=== PATIENT | female | born 1950 | race Caucasian/White ===

== ENCOUNTER → 2018-04-23 | Outpatient (CLI) | payer MEDICARE, OTHER ==
[~2018-04-23] MED LIST: ESOM20; ESTR.75; LANS15EC; LEVLIO2; LEVSOD100; OMEP20ER PO
== END | disposition home or self-care (01) ==
LOC: LAB 09:37 → LAB FUT 04-19 09:25
DX: K21.9 Gastro-esophageal reflux disease without esophagitis (principal)
CPT/HCPCS: 87338

== ENCOUNTER → 2018-05-08 | Outpatient (CLI) | payer MEDICARE, OTHER | END | disposition home or self-care (01) | LOC: LAB SHORT 13:30 → LAB EV 13:30 | DX: N39.0 Urinary tract infection, site not specified (principal) | CPT/HCPCS: 87086; 87147 ==

== ENCOUNTER → 2018-05-20 | Outpatient (CLI) | payer MEDICARE, OTHER | LOC: LAB SHORT 13:55 → LAB EV 13:55 | DX: N30.00 Acute cystitis without hematuria (principal) | CPT/HCPCS: 87086 ==

== ENCOUNTER 2018-12-27 10:34 | Day surgery (SDC) | payer MEDICARE, OTHER ==
[~2018-12-27] VITALS: Ht 165.1 cm; Wt 105.2 kg
[~2018-12-27 10:34] MED LIST changes: +GREEN TEA PO; +HM CALCIUM-MAG1 EACH PO; +LANS30EC PO; +MONT10T PO; +SYNTHROID0.2 MG PO; +Synthroid175 MCG PO; +TUMERSAID TABL1 EACH PO; +Vitamin D2000 UNIT PO; +ZYRTEC10 M1 PO
[2018-12-27] MEDS ORDERED: FISH OIL + D31 EACH (11:55)
== END 2018-12-27 13:29 | disposition home or self-care (01) ==
LOC: ORSCSDS 10:34
PROVIDERS: Ophthalmology
PROC: 08RJ3JZ Replacement of Right Lens with Synthetic Substitute, Percutaneous Approach (ICD-10-PCS; principal; 2018-12-27 12:30)
DX: H25.11 Age-related nuclear cataract, right eye (principal); H21.81 Floppy iris syndrome; J45.909 Unspecified asthma, uncomplicated; E03.9 Hypothyroidism, unspecified; Z79.899 Other long term (current) drug therapy; E66.9 Obesity, unspecified; Z68.38 Body mass index [BMI] 38.0-38.9, adult
CPT/HCPCS: J2001; J2250; J3010; J7120; V2632

== ENCOUNTER 2019-02-21 13:09 | Day surgery (SDC) | payer MEDICARE, OTHER ==
[~2019-02-21] VITALS: Ht 165.1 cm; Wt 231.8 kg
[~2019-02-21 13:09] MED LIST changes: +FISH OIL + D31 EACH
--- NOTE | 2019-02-21 13:43 | NUR ---
02/21/19 1343 Brabara Rivera IV ATTEMPT LH- INFILTRATED IV ATTEMPT LH- INFILTRATED
== END 2019-02-21 14:39 | disposition home or self-care (01) ==
LOC: ORSCSDS 13:09
PROVIDERS: Ophthalmology
PROC: 08RK3JZ Replacement of Left Lens with Synthetic Substitute, Percutaneous Approach (ICD-10-PCS; principal; 2019-02-21 14:30)
DX: H25.12 Age-related nuclear cataract, left eye (principal); H21.81 Floppy iris syndrome; E03.9 Hypothyroidism, unspecified; J45.909 Unspecified asthma, uncomplicated; Z79.899 Other long term (current) drug therapy
CPT/HCPCS: J2001; J2250; J3010; V2632

== ENCOUNTER → 2019-03-07 | Outpatient (CLI) | payer MEDICARE, OTHER | END | disposition home or self-care (01) | LOC: LAB EV 09:51 → LAB SHORT 09:51 | DX: N39.0 Urinary tract infection, site not specified (principal) | CPT/HCPCS: 87077; 87086; 87186 ==

== ENCOUNTER → 2019-04-16 | Outpatient (CLI) | payer MEDICARE, OTHER | END | disposition home or self-care (01) | LOC: LAB EV 07:10 | DX: R11.0 Nausea (principal) | CPT/HCPCS: 87338 ==

== ENCOUNTER 2019-06-12 13:39 | Day surgery (SDC) | payer MEDICARE, OTHER ==
[~2019-06-12] VITALS: Ht 165.1 cm; Wt 105.7 kg
--- NOTE | 2019-06-12 16:08 | NUR ---
06/12/19 1608 Paulina Keith LATE ENTRY: DR ROSE WAS CALLED INTO ASSIST PT WAS DESATURATING TO 88% DESPITE CHIN LIFT AND INCREASE O2 TO [address] ROSE ARRIVED SEDATION WAS PREFORMED ORDERED BY DR ROSE. SEE SEATION WORK SHEET.
== END 2019-06-12 16:31 | disposition home or self-care (01) ==
LOC: ORSCSDS 13:39
PROVIDERS: Internal Medicine Gastroenterology
PROC: 0DB58ZX Excision of Esophagus, Via Natural or Artificial Opening Endoscopic, Diagnostic (ICD-10-PCS; principal; 2019-06-12 15:00)
PROC: 0D758ZZ Dilation of Esophagus, Via Natural or Artificial Opening Endoscopic (ICD-10-PCS; principal; 2019-06-12 15:00)
DX: R13.14 Dysphagia, pharyngoesophageal phase (principal); K21.0 Gastro-esophageal reflux disease with esophagitis; J45.909 Unspecified asthma, uncomplicated; G47.33 Obstructive sleep apnea (adult) (pediatric); E03.9 Hypothyroidism, unspecified; E66.9 Obesity, unspecified; Z68.38 Body mass index [BMI] 38.0-38.9, adult; Z79.899 Other long term (current) drug therapy
CPT/HCPCS: 88305; 88312; J2704; J7120

== ENCOUNTER → 2019-08-08 | Outpatient (CLI) | payer MEDICARE, OTHER | END | disposition home or self-care (01) | LOC: LAB EV 11:27 → LAB SHORT 11:27 | DX: N39.0 Urinary tract infection, site not specified (principal) | CPT/HCPCS: 87077; 87086; 87186 ==

== ENCOUNTER → 2019-09-17 | Outpatient (CLI) | payer MEDICARE, OTHER ==
[2019-09-19 14:06] LABS: HPV 16 Negative (Negative); HPV 18 Negative (Negative); HPV OTHER HR TYPES Negative (Negative)
== END | disposition home or self-care (01) ==
LOC: LAB SHORT 15:54 → LAB 15:54
PROVIDERS: Obstetrics & Gynecology Gynecology
DX: Z91.89 Other specified personal risk factors, not elsewhere classified (principal)
CPT/HCPCS: 87624; G0123

== ENCOUNTER → 2020-10-10 | Outpatient (CLI) | payer MEDICARE, OTHER ==
[~2020-10-10] MED LIST changes: +FISH OIL 1,2001 EAC7 PO; +GUAI600T33 PO; +LEVOTHYROXINE175 MC1 PO; +LEVOTHYROXINE200 MCG PO; +THERA-D2000 UNIT PO
== END | disposition home or self-care (01) ==
LOC: PLD 16:03
DX: N39.0 Urinary tract infection, site not specified (principal)
CPT/HCPCS: 87077; 87086; 87186

== ENCOUNTER 2021-01-11 09:14 | Day surgery (SDC) | payer MEDICARE, OTHER ==
[~2021-01-11] VITALS: Ht 165.1 cm; Wt 103.5 kg
--- NOTE | 2021-01-11 10:21 | NUR ---
01/11/21 1021 AREN CORDOBA AFTER REVIEW OF THE CHART, THIS RN CONSULTED WITH [facility] COACH, KEE. DUE TO REPEATED ANESTHESIA INVOLVEMENT IN PAST CASES ANESTHESIA WAS CONSULTED AND PT SEDATION CLASS WAS CHANGED TO MAC WITH DR. ROSE PROVIDING ANESTHESIA SERVICES.
== END 2021-01-11 11:28 | disposition home or self-care (01) ==
LOC: ORSCSDS 09:14
PROVIDERS: Internal Medicine Gastroenterology
PROC: 0DJD8ZZ Inspection of Lower Intestinal Tract, Via Natural or Artificial Opening Endoscopic (ICD-10-PCS; principal; 2021-01-11 10:30)
DX: Z12.11 Encounter for screening for malignant neoplasm of colon (principal); Z86.010 Personal history of colon polyps; K57.30 Diverticulosis of large intestine without perforation or abscess without bleeding; J45.909 Unspecified asthma, uncomplicated; E03.9 Hypothyroidism, unspecified; G47.33 Obstructive sleep apnea (adult) (pediatric); K21.9 Gastro-esophageal reflux disease without esophagitis; E66.01 Morbid (severe) obesity due to excess calories; E66.9 Obesity, unspecified; Z68.38 Body mass index [BMI] 38.0-38.9, adult; Z68.41 Body mass index [BMI] 40.0-44.9, adult; Z79.899 Other long term (current) drug therapy
CPT/HCPCS: J2250; J2704; J7120

== ENCOUNTER 2021-11-17 08:33 | Day surgery (SDC) | payer MEDICARE, OTHER ==
[~2021-11-17] VITALS: Ht 165.1 cm; Wt 110.0 kg
--- NOTE | 2021-11-17 09:15 | NUR ---
Ambulatory in Day Surgery. History, Chart, Medications and Allergies reviewed before start of procedure. Lungs clear T/O to Auscultation. Patient confirms NPO status and agrees with scheduled surgery. Pre-Op teaching done. Pt verbalizes understanding.
--- NOTE | 2021-11-17 16:17 | NUR ---
SHIFT SUMMARY: POD 0 RIGHT TOTAL KNEE PATIENT IS ALERT AND ORIENTED X4. VS ARE WNL AND IS ON RA. PATIENT DENIES PAIN AT THIS TIME BUT WILL BE MEDICATED PRN INDICATED IN EMAR. PATIENTS RIGHT KNEE HAS GAUZE AND GERA WRAP THAT IS C/D/I. DENIES NUMBNESS OR TINGLING. PATIENT IS ABLE TO MOVE FINGERS AND TOES. PATIENT IS CURRENTLY WORKING WITH PT AT THE MOMENT. CALL LIGHT WITHIN REACH. THE PLAN IS TO CONTINUE TO HAVE PAIN CONTROL AND TO WORK WITH PT AGAIN IN THE MORNING. POSSIBLE DISCHARGE HOME TOMORROW IF APPROPRIATE.
[2021-11-18 05:23] LABS: BASOPHILS ABSOLUTE AUTO 0.01 K/mm3 (0.00-0.23); BASOPHILS PERCENT AUTO 0 % (0-2); EOSINOPHILS PERCENT AUTO 0 % (0-6); Hematocrit 36.7 % (33.0-51.0); Hemoglobin 11.8 g/dL (11.5-16.0); IMMATURE GRAN ABSOLUTE AUTO 0.06 K/mm3 (0.00-0.10); IMMATURE GRAN PERCENT AUTO 0 % (0-1); LYMPHOCYTES ABSOLUTE AUTO 1.22 K/mm3 (0.84-5.20); LYMPHOCYTES PERCENT AUTO 8 % (21-46); MONOCYTES ABSOLUTE AUTO 1.18 K/mm3 (0.16-1.47); MONOCYTES PERCENT AUTO 8 % (4-13); Mean Corpuscular HGB 28.6 pg (26.0-34.0); Mean Corpuscular HGB Conc 32.2 g/dL (31.5-36.5); Mean Corpuscular Volume 89 fL (80-100); Mean Platelet Volume 10.2 fL (9.1-12.4); NEUTROPHILS ABSOLUTE AUTO 12.99 K/mm3 (1.96-9.15); NEUTROPHILS PERCENT AUTO 84 % (41-73); Platelet Count 314 K/mm3 (150-400); RDW Coefficient Variation 13.8 % (11.7-14.2); RDW Standard Deviation 45.2 fL (35.1-46.3); Red Blood Cell Count 4.13 M/mm3 (3.80-5.20); White Blood Cell Count 15.46 K/mm3 (4.00-11.30)
[2021-11-18 05:25] LABS: Anion Gap 6 mmol/L (6-16); Blood Urea Nitrogen 15 mg/dL (8-24); Bun/Creatinine Ratio 16.5 (12.0-20.0); CO2, Blood 26 mmol/L (21-32); Calcium, Blood 8.4 mg/dL (8.5-10.1); Chloride, Blood 106 mmol/L (98-108); Creatinine, Blood 0.91 mg/dL (0.40-1.00); Glomerular Filtration Rate >60 (60-); Glucose, Blood 135 mg/dL (70-99); Potassium, Blood 4.6 mmol/L (3.5-5.5); Sodium, Blood 138 mmol/L (136-145)
--- NOTE | 2021-11-18 06:13 | NUR ---
ALERT AND ORIENTED X'S 4. SLEPT WELL THROUGH NIGHT. PAIN CONTROLLED WITH SCHEDULED TYLENOL AND TORADOL. AMBULATES WITH WALKER WITH CONTACT GUARD. TOLERATED FLUIDS. VOIDS WITHOUT DIFFICULTY. DRESSING TO RIGHT KNEE, CLEAN DRY AND INTACT. SAFETY MAINTAINED, CALL SIMON IN REACH.
[2021-11-18] MEDS ORDERED: Aspir 8181 MG PO (08:47)
[2021-11-18] MEDS ORDERED: SULTRIDS PO (08:47)
[2021-11-18] MEDS ORDERED: ENOX40I SC ×2 (08:48→09:07)
[2021-11-18] MEDS ORDERED: OXAYDO5 M1 PO (09:07)
[2021-11-18] MEDS ORDERED: PROM25 PO (09:07)
--- NOTE | 2021-11-18 10:16 | NUR ---
Patient is in the DC process. She tells me about the success of the surgery and how she hopes for a smooth recovery. Patient then talks about her spiritual journey, her family unit complications and the of her previous . I provide therapeutic listening, grief support and prayer. Patient responds well and shows signs of of beinf comforted.
--- NOTE | 2021-11-18 10:35 | NUR ---
1015 DISCHARGED TO HOME PT DARLING PO FOOD AND FLUIDS WITHOUT NAUSEA. AMBULATING IN ROOM AND HALLWAY WITH WALKER, GAIT BELT AND STANDBY ASSIST. PT DEMONSTRATED CORRECT ADMINISTRATION OF LOVENOX. PT REPORTS PAIIN IS WELL CONTROLLED
--- NOTE | 2021-11-18 10:41 | NUR ---
0830 1/4 INCH CIRCULAR SKIN TEAR TO TOP OF RIGHT HAND WHICH OCCURED WHEN END OF GAIT BELT HIT BACK OF PATIENTS HAND. NO BLEEDING TO SITE. BAND AID APPLIED
--- NOTE | 2021-11-18 14:04 | NUR ---
11/18/21 1404 Melody Dent VERIFICATIONS: EDIT CHART.
== END 2021-11-18 10:18 | disposition home or self-care (01) ==
LOC: ORSCMMR 08:33 → ORD 10:45 → ORSCMMR 10:45 → SURS 14:07 → ORSCMMR 14:07 → SURS 11-18 10:18 → ORSCMMR 11-18 10:18
PROVIDERS: Orthopaedic Surgery
PROC: 0SRC0J9 Replacement of Right Knee Joint with Synthetic Substitute, Cemented, Open Approach (ICD-10-PCS; principal; 2021-11-17 10:45)
PROC: 8E0YXBZ Computer Assisted Procedure of Lower Extremity (ICD-10-PCS; principal; 2021-11-17 10:45)
DX: M17.11 Unilateral primary osteoarthritis, right knee (principal); J45.909 Unspecified asthma, uncomplicated; K21.9 Gastro-esophageal reflux disease without esophagitis; E03.9 Hypothyroidism, unspecified; E66.01 Morbid (severe) obesity due to excess calories; Z68.41 Body mass index [BMI] 40.0-44.9, adult; Z79.899 Other long term (current) drug therapy
CPT/HCPCS: 36415; 73560-RT; 80048; 83735; 85025; 97110; 97116; 97162; A9270; C1713; C1776; J0171; J0690; J0735; J1100; J1650; J1885; J2370; J2405; J2704; J2765; J2795; J3010; J7120

== ENCOUNTER → 2022-01-26 | Outpatient (CLI) | payer MEDICARE, OTHER ==
[~2022-01-26] MED LIST changes: +Aspir 8181 MG PO; +ENOX40I SC; +OXAYDO5 M1 PO; +PROM25 PO; +SULTRIDS PO
== END | disposition home or self-care (01) ==
LOC: LAB SHORT 13:56
DX: N39.0 Urinary tract infection, site not specified (principal)
CPT/HCPCS: 87086

== ENCOUNTER 2022-02-11 08:50 | Day surgery (SDC) | payer MEDICARE, OTHER ==
[~2022-02-11] VITALS: Ht 165.1 cm; Wt 109.3 kg
--- NOTE | 2022-02-11 10:23 | NUR ---
02/11/22 1023 AREN CORDOBA pt updated that we weill be starting later due to Dr. ALCANTARA'S prior procedure running longer. she is understanding and has a call light within reach. warm blankets provided. all questions asked and answered
== END 2022-02-11 11:34 | disposition home or self-care (01) ==
LOC: ORSCSDS 08:50
PROVIDERS: Internal Medicine Gastroenterology
PROC: 0DJ08ZZ Inspection of Upper Intestinal Tract, Via Natural or Artificial Opening Endoscopic (ICD-10-PCS; principal; 2022-02-11 10:15)
DX: R19.4 Change in bowel habit (principal); K21.9 Gastro-esophageal reflux disease without esophagitis; J45.909 Unspecified asthma, uncomplicated; K44.9 Diaphragmatic hernia without obstruction or gangrene; E66.01 Morbid (severe) obesity due to excess calories; Z68.41 Body mass index [BMI] 40.0-44.9, adult; Z79.82 Long term (current) use of aspirin; Z79.899 Other long term (current) drug therapy
CPT/HCPCS: A9270; J0461; J2405; J2704

== ENCOUNTER → 2022-02-11 | Outpatient (CLI) | payer MEDICARE, OTHER ==
[2022-02-11 10:27] LABS: Stool Occult Bld Immuno 1 Negative (NEGATIVE); Stool Occult Bld Immuno 2 Negative (NEGATIVE)
== END | disposition home or self-care (01) ==
LOC: LAB SHORT 07:30 → LAB 07:30
PROVIDERS: Internal Medicine Gastroenterology
DX: R19.8 Other specified symptoms and signs involving the digestive system and abdomen (principal)
CPT/HCPCS: 82274

== ENCOUNTER → 2022-10-25 | Outpatient (CLI) | payer MEDICARE, OTHER | END | disposition home or self-care (01) | LOC: LAB SHORT 09:38 | DX: N39.0 Urinary tract infection, site not specified (principal) | CPT/HCPCS: 87077; 87086; 87186 ==

== ENCOUNTER 2023-02-15 06:04 | Day surgery (SDC) | payer MEDICARE, OTHER ==
[2023-02-15] VITALS (18 sets, daily range): BP systolic 118–149; BP diastolic 48–78
[~2023-02-15] VITALS: Ht 165.1 cm; Wt 112.0 kg
--- NOTE | 2023-02-15 06:30 | NUR ---
Ambulatory in Day Surgery History, Chart, Medications and Allergies reviewed before start of procedure.Lungs clear T/O to Auscultation. Patient confirms NPO status and agrees with scheduled surgery. Patient reports completing Chlorhexadine shower X2 prior to admission to hospital.Surgical site prepped with 2% Chlorhexidine cloth wipe.Pt reports that she has already had her pain meds filled for discharge.
--- NOTE | 2023-02-15 08:12 | NUR ---
02/15/23 0812 Marlee Jacobo 1GM OF VANCOMYCIN GIVEN IN PREOP PRIOR TO COMING TO THE OR.
--- NOTE | 2023-02-15 11:37 | NUR ---
PATIENT ARRIVED FROM PACU TODAY AT 1130. POD 0 LEFT TKA PATIENT IS A&OX4. PATIENT IS ON 4L NC WITH >90% OXYGEN SATS BUT OTHERWISE VS ARE WNL. PATIENT DENIES PAIN AT THIS TIME. HER LEFT KNEE HAS AN GERA WRAP WITH POLAR PACK IN PLACE THAT IS C/D/I. DENIES NUMBNESS OR TINGLING IN ALL EXTREMITIES. CAN MOVE ALL FINGERS AND TOES WHEN ASKED. SHE IS TOLERATING SMALL AMOUNTS OF PO INTAKE. SHE IS LAYING IN BED WITH CALL LIGHT IN REACH. HER SPOUSE SANDRO WAS CALLED AND NOTIFIED THAT THE PATIENT IS IN HER ROOM.
--- NOTE | 2023-02-15 15:47 | NUR ---
SHIFT SUMMARY: POD 0 LEFT TKA PATIENT IS A&OX4. VS ARE WNL AND IS ON RA. PATIENT HAS REPORTED SLIGHT "DISCOMFORT" BUT HAS BEEN GIVEN HER PO SCHEDULED TYLENOL SO FAR THIS SHIFT. HER LEFT KNEE HAS GERA WRAP THAT IS C/D/I. DENIES NUMBNESS OR TINGLING. CAN MOVE ALL FINGERS AND TOES. POLAR PACK IS IN PLACE. SHE HAS AMBULATED THE HALLWAYS AND WORKED WITH PT ONCE TODAY. SHE IS TOLERATING PO INTAKE AND IS VOIDING. PATIENT IS A SBA WITH FWW AND GAIT BELT. SHE CALLS APPROPRIATELY. SHE IS SITTING IN THE RECLINER WITH HER LEGS ELEVATED. CALL LIGHT WITHIN REACH.
--- NOTE | 2023-02-16 03:21 | NUR ---
PT AWAKE WITH IV ALARMING.PT REPORTING SHE WAS NOT ASLEEP,BUT WAS RESTING EYES. VSS.DENIES NEED AT THIS TIME.
[2023-02-16 03:22] VITALS: BP 121/55
[2023-02-16 03:51] LABS: BASOPHILS ABSOLUTE AUTO 0.03 K/mm3 (0.00-0.23); BASOPHILS PERCENT AUTO 0 % (0-2); EOSINOPHILS ABSOLUTE AUTO 0.01 K/mm3 (0.00-0.68); EOSINOPHILS PERCENT AUTO 0 % (0-6); Hematocrit 37.6 % (33.0-51.0); IMMATURE GRAN ABSOLUTE AUTO 0.05 K/mm3 (0.00-0.10); IMMATURE GRAN PERCENT AUTO 0 % (0-1); LYMPHOCYTES ABSOLUTE AUTO 1.45 K/mm3 (0.84-5.20); LYMPHOCYTES PERCENT AUTO 10 % (21-46); MONOCYTES ABSOLUTE AUTO 1.12 K/mm3 (0.16-1.47); MONOCYTES PERCENT AUTO 8 % (4-13); Mean Corpuscular HGB Conc 31.9 g/dL (31.5-36.5); Mean Corpuscular Volume 88 fL (80-100); Mean Platelet Volume 9.4 fL (9.1-12.4); NEUTROPHILS ABSOLUTE AUTO 11.64 K/mm3 (1.96-9.15); NEUTROPHILS PERCENT AUTO 82 % (41-73); Platelet Count 282 K/mm3 (150-400); RDW Coefficient Variation 14.3 % (11.7-14.2); RDW Standard Deviation 46.1 fL (35.1-46.3); Red Blood Cell Count 4.28 M/mm3 (3.80-5.20)
[2023-02-16 05:49] LABS: Calcium, Blood 8.2 mg/dL (8.5-10.1); Creatinine, Blood 0.94 mg/dL (0.40-1.00); Potassium, Blood 3.8 mmol/L (3.5-5.5)
--- NOTE | 2023-02-16 07:33 | NUR ---
DR MARTIN IN TO SEE PT.
--- NOTE | 2023-02-16 07:41 | NUR ---
SUMMARY PT AMBULATORY WITH SBA.TOLERATING PO AND VOIDING.DR KELLY HERE.PT IS PLANNING FOR DISCHARGE.
[2023-02-16 07:56] VITALS: BP 116/51
[2023-02-16] MEDS ORDERED: OXYC5 PO (08:34)
[2023-02-16] MEDS ORDERED: PROM25 PO (08:37)
[2023-02-16] MEDS ORDERED: XARELTO10 M1 PO (08:39)
[2023-02-16] MEDS ORDERED: SULTRIDS PO (08:39)
--- NOTE | 2023-02-16 10:07 | NUR ---
discharged DC'D IV, CATHETER INTACT. PT CLEARED THERAPY. REVIEWED DC INSTRUCTIONS W/PT; VERBALIZED UNDERSTANDING. PT LEFT UNIT IN WC W/POSSESSIONS AND DC PAPERWORK AND POLAR PACK IN HAND TO RIDE WAITING OUTSIDE.
== END 2023-02-16 10:04 | disposition home or self-care (01) ==
LOC: ORSCMMR 06:04 → ORD 07:30 → ORSCMMR 07:30 → SURS 10:57 → ORSCMMR 02-16 10:04
PROVIDERS: Orthopaedic Surgery
PROC: 0SRD0J9 Replacement of Left Knee Joint with Synthetic Substitute, Cemented, Open Approach (ICD-10-PCS; principal; 2023-02-15 07:30)
DX: M17.12 Unilateral primary osteoarthritis, left knee (principal); Z96.651 Presence of right artificial knee joint; E66.01 Morbid (severe) obesity due to excess calories; Z68.41 Body mass index [BMI] 40.0-44.9, adult; J45.909 Unspecified asthma, uncomplicated; E03.9 Hypothyroidism, unspecified; K21.9 Gastro-esophageal reflux disease without esophagitis; Z79.899 Other long term (current) drug therapy
CPT/HCPCS: 36415; 73560-LT; 80048; 83735; 85025; 97110; 97116; 97162; A9270; C1713; C1776; J0171; J0690; J0735; J1100; J1885; J2250; J2370; J2405; J2704; J2765; J2795; J3010; J3370; J7120

== ENCOUNTER 2024-07-14 16:39 | Emergency (ER) | payer MEDICARE, OTHER ==
[~2024-07-14] VITALS: Ht 167.6 cm; Wt 99.8 kg
[~2024-07-14 16:39] MED LIST changes: +OXYC5 PO; +XARELTO10 M1 PO
[2024-07-14 17:41] LABS: BASOPHILS ABSOLUTE AUTO 0.06 K/mm3 (0.00-0.23); BASOPHILS PERCENT AUTO 1 % (0-2); EOSINOPHILS ABSOLUTE AUTO 0.19 K/mm3 (0.00-0.68); EOSINOPHILS PERCENT AUTO 2 % (0-6); Hematocrit 43.9 % (33.0-51.0); Hemoglobin 14.1 g/dL (11.5-16.0); IMMATURE GRAN ABSOLUTE AUTO 0.02 K/mm3 (0.00-0.10); IMMATURE GRAN PERCENT AUTO 0 % (0-1); LYMPHOCYTES ABSOLUTE AUTO 2.39 K/mm3 (0.84-5.20); LYMPHOCYTES PERCENT AUTO 27 % (21-46); MONOCYTES PERCENT AUTO 8 % (4-13); Mean Corpuscular HGB 27.7 pg (26.0-34.0); Mean Corpuscular HGB Conc 32.1 g/dL (31.5-36.5); Mean Corpuscular Volume 86 fL (80-100); Mean Platelet Volume 9.4 fL (9.1-12.4); NEUTROPHILS ABSOLUTE AUTO 5.67 K/mm3 (1.96-9.15); NEUTROPHILS PERCENT AUTO 63 % (41-73); Platelet Count 333 K/mm3 (150-400); RDW Coefficient Variation 14.2 % (11.7-14.2); RDW Standard Deviation 45.2 fL (35.1-46.3); Red Blood Cell Count 5.09 M/mm3 (3.80-5.20); White Blood Cell Count 9.03 K/mm3 (4.00-11.30)
[2024-07-14 17:52] LABS: Albumin, Blood 3.1 g/dL (3.4-5.0); Albumin/Globulin Ratio 0.8 (0.8-1.8); Bilirubin, Total 0.2 mg/dL (0.1-1.0); Bun/Creatinine Ratio 11.7 (12.0-20.0); Calcium, Blood 8.4 mg/dL (8.5-10.1); Creatinine, Blood 0.94 mg/dL (0.40-1.00); Globulin, Blood 4.1 g/dL (2.2-4.0); Potassium, Blood 4.1 mmol/L (3.5-5.5); Total Protein, Blood 7.2 g/dL (6.4-8.2)
[2024-07-14 19:30] VITALS: BP 145/71
== END 2024-07-14 20:09 | disposition home or self-care (01) ==
LOC: ER 16:39
PROVIDERS: Student in an Organized Health Care Education/Training Program
DX: K44.9 Diaphragmatic hernia without obstruction or gangrene (principal); J45.909 Unspecified asthma, uncomplicated; K21.9 Gastro-esophageal reflux disease without esophagitis; Z79.899 Other long term (current) drug therapy
CPT/HCPCS: 71045; 80053; 83690; 84484; 85025; 93005; 93010; 99285-25

== ENCOUNTER → 2024-08-07 | Outpatient (CLI) | payer MEDICARE, OTHER | END | disposition home or self-care (01) | LOC: LAB SHORT 10:30 → LAB 10:30 | DX: N39.0 Urinary tract infection, site not specified (principal) | CPT/HCPCS: 87077; 87086; 87186 ==

== ENCOUNTER 2025-08-19 14:00 | Emergency (ER) | payer MEDICARE, OTHER ==
[~2025-08-19] VITALS: Ht 165.1 cm; Wt 107.5 kg
[2025-08-19] MEDS ORDERED: Ondansetron HCl 2 MG / ML 2ML Vial IV ONE (14:35)
[2025-08-19] MEDS ORDERED: Morphine Sulfate 4 MG/1 ML Injection IV ONE (14:35)
[2025-08-19 15:04] LABS: BASOPHILS ABSOLUTE AUTO 0.04 K/mm3 (0.00-0.23); BASOPHILS PERCENT AUTO 0 % (0-2); EOSINOPHILS ABSOLUTE AUTO 0.23 K/mm3 (0.00-0.68); EOSINOPHILS PERCENT AUTO 2 % (0-6); Hematocrit 38.8 % (33.0-51.0); Hemoglobin 12.5 g/dL (11.5-16.0); IMMATURE GRAN ABSOLUTE AUTO 0.05 K/mm3 (0.00-0.10); IMMATURE GRAN PERCENT AUTO 1 % (0-1); LYMPHOCYTES ABSOLUTE AUTO 1.70 K/mm3 (0.84-5.20); LYMPHOCYTES PERCENT AUTO 18 % (21-46); MONOCYTES ABSOLUTE AUTO 0.76 K/mm3 (0.16-1.47); MONOCYTES PERCENT AUTO 8 % (4-13); Mean Corpuscular HGB Conc 32.2 g/dL (31.5-36.5); Mean Corpuscular Volume 89 fL (80-100); NEUTROPHILS ABSOLUTE AUTO 6.82 K/mm3 (1.96-9.15); NEUTROPHILS PERCENT AUTO 71 % (41-73); NRBC ABSOLUTE 0.00 K/mm3 (0.00-0.02); NRBC Auto 0.0 /100 WBC (0.0-0.2); RDW Coefficient Variation 14.5 % (11.7-14.2); RDW Standard Deviation 46.5 fL (35.1-46.3)
[2025-08-19 15:21] LABS: Alanine Aminotransfer (ALT/SGP 21.0 U/L (12-78); Albumin, Blood 3.1 g/dL (3.4-5.0); Albumin/Globulin Ratio 0.8 (0.8-1.8); Anion Gap 9.0 mmol/L (3-11); Aspartate Aminotrans (AST/SGOT 19.0 U/L (12-37); Bilirubin, Total 0.8 mg/dL (0.1-1.0); Blood Urea Nitrogen 9.0 mg/dL (8-24); CO2, Blood 26.0 mmol/L (21-32); Calcium, Blood 9.1 mg/dL (8.5-10.1); Chloride, Blood 104.0 mmol/L (98-108); Creatinine, Blood 0.76 mg/dL (0.40-1.00); Globulin, Blood 4.0 g/dL (2.2-4.0); Glucose, Blood 138.0 mg/dL (70-99); Potassium, Blood 3.8 mmol/L (3.5-5.5); Sodium, Blood 135.0 mmol/L (136-145); Total Protein, Blood 7.1 g/dL (6.4-8.2)
[2025-08-19 15:29] LABS: Platelet Count 341 K/mm3 (150-400)
[2025-08-19 18:06] VITALS: BP 168/95
== END 2025-08-19 18:09 | disposition home or self-care (01) ==
LOC: ER 14:00
PROVIDERS: Emergency Medicine
DX: S42.291A Other displaced fracture of upper end of right humerus, initial encounter for closed fracture (principal); S42.211A Unspecified displaced fracture of surgical neck of right humerus, initial encounter for closed fracture; S42.251A Displaced fracture of greater tuberosity of right humerus, initial encounter for closed fracture; E89.0 Postprocedural hypothyroidism; Z79.890 Hormone replacement therapy; Z79.899 Other long term (current) drug therapy; W19.XXXA Unspecified fall, initial encounter
CPT/HCPCS: 80053; 85025; 96374; 96375; 99283-25; J2270; J2405